=== PATIENT | female | born 1975 | race Caucasian/White ===

== ENCOUNTER 2016-12-22 18:39 | Emergency (ER) | payer BC, MEDICAID ==
[~2016-12-22] VITALS: Ht 170.2 cm; Wt 109.0 kg
[2016-12-22 19:09] VITALS: Ht 170.2 cm; Wt 109.0 kg
[2016-12-22] MEDS ORDERED: IBUPROFEN 800 MG TAB PO ONE (20:30)
[2016-12-22] MEDS ORDERED: HYDR25SU23 PR (20:37)
[2016-12-22] MEDS ORDERED: DOCU-144 PO (20:37)
[2016-12-22] MEDS ORDERED: POLY17PO6 PO (20:37)
[2016-12-22] MEDS ORDERED: IBUP-1542 PO (20:37)
[2016-12-22] MEDS ORDERED: HYDR-906 PO (20:37)
--- NOTE | 2016-12-22 20:43 | ERD ---
ER Documentation Chief Complaint Date/Time DATE: 12/22/16 TIME: 20:40 Chief Complaint RECTAL BLEEDING X 3 DAYS WITH RECTAL PAIN/SWELLING, NO ABD PAIN HPI This a 41-year-old female who presents the emergency department today complaining of rectal pain and some bleeding for the past 3 days. Patient denies any constipation. States that she has unsure if she has had hemorrhoids in the past may have had when she was with her child. Denies that there is any gross blood in the toilet and states that she just notices a blood when she wipes. States she is taking Tylenol for pain. Denies any fevers or chills. Denies any abdominal pain. ROS All systems reviewed and are negative except as per history of present illness. Medications Home Meds Active Scripts Ibuprofen* (Motrin*) 600 Mg Tab, 600 MG PO Q6, #30 TAB Prov:EUNICE WORTHY-C 12/22/16 Docusate Sodium* (Colace*) 100 Mg Capsule, 100 MG PO TID, #30 CAP Prov:EUNICE WORTHY PA-C 12/22/16 Polyethylene Glycol* (Miralax*) 17 Gm Powd.pack, 17 GM PO DAILY, #14 Prov:EUNICE WORTHY-C 12/22/16 Hydrocodone/Acetaminophen (Rosser 5-325 Tablet) 1 Each Tablet, 1 TAB PO Q6H Y for PAIN, #12 TAB Prov:EUNICE WORTHYC 12/22/16 Hydrocortisone Acetate (Anusol-Hc) 25 Mg Supp.rect, 1 SUPP FL BID Y for HEMORROID PAIN/ITCHING, #15 SUPP.RECT Prov:EUNICE WORTHY-C 12/22/16 Allergies Allergies: Coded Allergies: No Known Allergy (Unverified , 07/26/14) PMhx/Soc Medical and Surgical Hx: pt denies Medical Hx, pt denies Surgical Hx Hx Alcohol Use: Yes Hx Substance Use: No Hx Tobacco Use: No Smoking Status: Never smoker Physical Exam Vitals Vital Signs Date Time Temp Pulse Resp B/P Pulse Ox O2 Delivery O2 Flow Rate FiO2 12/22/16 19:09 99.0 83 18 127/77 98 Physical Exam Const: Obese, no acute distress Head: Atraumatic Eyes: Normal Conjunctiva ENT: Normal External Ears, Nose and Mouth. Neck: Full range of motion..~ No meningismus. Resp: Clear to auscultation bilaterally Cardio: Regular rate and rhythm, no murmurs Abd: Soft, non tender, non distended. Normal bowel sounds : Rectal exam shows evidence of external hemorrhoids with mild bleeding. No evidence of thrombosed hemorrhoids. Skin: No petechiae or rashes Back: No midline or flank tenderness Ext: No cyanosis, or edema Neur: Awake and alert Psych: Normal Mood and Affect Results 24 hrs Current Medications Medications (Trade) Dose Ordered Sig/Duglas Route PRN Reason Start Time Stop Time Status Last Admin Dose Admin Ibuprofen (Motrin) 800 mg ONCE ONCE PO 12/22/16 20:30 12/22/16 20:31 DC 12/22/16 20:22 Procedures/MDM This 41-year-old female presents to the emergency department today with complaints of rectal pain and some bleeding for the past 3 days. Patient is afebrile and otherwise well-appearing. She is in no acute distress. Patient denied any gross melena or hematochezia. Patient indicated there was blood when she wipes. On physical exam patient has evidence of external hemorrhoids. I do not see evidence of thrombosed hemorrhoid at this time. I do not feel the patient requires incision and drainage. I have explained this to the patient. I do not feel the patient requires laboratory workup or imaging at this time. Patient appears hemodynamically stable and her vital signs are stable. Patient denies any constipation stating that she drink coffee every day and she had a bowel movement daily. Patient symptoms at this time is consistent with external hemorrhoids. Patient was given Motrin here in the emergency department as she was driving. Patient was given a prescription for Anusol, Colace, MiraLAX, Rosser for pain as well as Motrin. At this time the patient is stable for discharge and outpatient management. Patient should follow up with their PCP in the next 1-2 days. They may return to the emergency department sooner for any persistent or worsening of symptoms. Patient understood and agreed with the plan. Departure Diagnosis: Primary Impression: Hemorrhoids Hemorrhoid type: unspecified Qualified Code: K64.9 - Hemorrhoids, unspecified hemorrhoid type Condition: Fair Patient Instructions: Treating Hemorrhoids: Self-Care Referrals: COMMUNITY CLINICS YOU HAVE RECEIVED A MEDICAL SCREENING EXAM AND THE RESULTS INDICATE THAT YOU DO NOT HAVE A CONDITION THAT REQUIRES URGENT TREATMENT IN THE EMERGENCY DEPARTMENT. FURTHER EVALUATION AND TREATMENT OF YOUR CONDITION CAN WAIT UNTIL YOU ARE SEEN IN YOUR DOCTORS OFFICE WITHIN THE NEXT 1-2 DAYS. IT IS YOUR RESPONSIBILITY TO MAKE AN APPOINTMENT FOR FOLOW-UP CARE. IF YOU HAVE A PRIMARY DOCTOR --you should call your primary doctor and schedule an appointment IF YOU DO NOT HAVE A PRIMARY DOCTOR YOU CAN CALL OUR PHYSICIAN REFERRAL HOTLINE AT IF YOU CAN NOT AFFORD TO SEE A PHYSICIAN YOU CAN CHOSE FROM THE FOLLOWING [facility] [address] [facility] [facility] [address] [facility] [facility] [address] [facility] [facility] [address] [facility]. [facility] [address] [facility]. [facility] [address] Additional Instructions: Call your primary care doctor TOMORROW for an appointment during the next 1-2 days.See the doctor sooner or return here if your condition worsens before your appointment time. Take Rosser for severe pain otherwise take Naprosyn or Tylenol or Motrin Take MiraLAX and Colace to help avoid constipation Use Anusol as prescribed EUNICE WORTHY PA-C December 22, 2016 20:43
[2016-12-22 21:00] VITALS: BP 125/79; PULSE 70; RESP 18; TEMP 99
== END 2016-12-22 21:00 | disposition home or self-care (01) ==
LOC: FTE 18:39
DX: K64.4 Residual hemorrhoidal skin tags (principal)
CPT/HCPCS: Z7502; Z7610; 99283

== ENCOUNTER 2017-06-18 08:21 | Emergency (ER) | payer BC, MEDICAID ==
[~2017-06-18] VITALS: Ht 167.6 cm; Wt 101.5 kg
[~2017-06-18 08:21] MED LIST: DOCU-144 PO; HYDR-906 PO; HYDR25SU23 PR; IBUP-1542 PO; POLY17PO6 PO
[2017-06-18 08:25] VITALS: Ht 167.6 cm; Wt 101.5 kg
--- NOTE | 2017-06-18 09:20 | ERD ---
ER Documentation Chief Complaint Chief Complaint left hand pain & swelling x2 day HPI 42y/o female patient with no significant medical history,presents to the emergency department c/o left thumb pain located tender area, that started 4 ago after lifting her son. pain is dull, rated 8/10, radiated to left wrist. The symptoms are associated with decreased range of motion and mild local edema. Denies fever, chills, N/V/D. No history of previous episodes. Treatment attempted: Local ice ROS SYSTEMIC symptoms: no fever, chills, no night sweats, no weight loss EYE symptoms: No blurred vision, no eye discharge OTOLARYNGEAL symptoms: No hearing loss. No ear pain, no sore throat CARDIOVASCULAR symptoms: No chest pain or discomfort, no palpitations. PULMONARY symptoms: No dyspnea, no cough, no wheezing. GASTROINTESTINAL symptoms: No abdominal pain, no nausea, no vomiting, no diarrhea NEUROLOGY symptoms: No confusion, no syncope, no numbness or tingling. SKIN no rashes All systems reviewed and are negative except as per history of present illness. Medications Home Meds Active Scripts Hydrocodone/Acetaminophen ([place] 5-325 Tablet) 1 Each Tablet, 1 TAB PO Q6H Y for PAIN, #7 TAB Prov:SYD OSORIO MD 06/18/17 Ibuprofen* (Motrin*) 600 Mg Tab, 600 MG PO Q8, #30 TAB Prov:SYD OSORIO MD 06/18/17 Ibuprofen* (Motrin*) 600 Mg Tab, 600 MG PO Q6, #30 TAB Prov:EUNICE WORTHY PA-C 12/22/16 Docusate Sodium* (Colace*) 100 Mg Capsule, 100 MG PO TID, #30 CAP Prov:EUNICE WORTHY PA-C 12/22/16 Polyethylene Glycol* (Miralax*) 17 Gm Powd.pack, 17 GM PO DAILY, #14 Prov:EUNICE WORTHY PA-C 12/22/16 Hydrocodone/Acetaminophen ([place] 5-325 Tablet) 1 Each Tablet, 1 TAB PO Q6H Y for PAIN, #12 TAB Prov:EUNICE WORTHY PA-C 12/22/16 Hydrocortisone Acetate (Anusol-Hc) 25 Mg Supp.rect, 1 SUPP ME BID Y for HEMORROID PAIN/ITCHING, #15 SUPP.RECT Prov:ZAYNABEUNICE Solitario PA-C 12/22/16 Allergies Allergies: Coded Allergies: No Known Allergy (Unverified , 07/26/14) PMhx/Soc Medical and Surgical Hx: pt denies Medical Hx, pt denies Surgical Hx Hx Alcohol Use: Yes Hx Substance Use: No Hx Tobacco Use: No Physical Exam Vitals Vital Signs Date Time Temp Pulse Resp B/P Pulse Ox O2 Delivery O2 Flow Rate FiO2 06/18/17 08:25 98.1 88 20 163/72 99 Physical Exam Patient is in no acute distress, vital signs stable. Alert and fully oriented. EYES: PERRLA, EOMI, Sclera and conjunctiva appear normal. EARS: Canals clear, tympanic membranes WNL THROAT: Normal oropharynx. NECK: Supple, No lymphadenopathy. Full ROM without pain or tenderness. HEART: RRR, no rubs, murmurs, clicks or gallops. LUNGS: Clear to auscultation. EXTREMITIES: No edema bilaterally. MUSC: left hand: mild edema of 1st digit, tenderness on PIP. No ecchymosis, neurovascular exam intact. Mild decreased ROM of left thumb Results 24 hrs DIAGNOSTIC IMAGING REPORT Patient: CHEYANNE ADAMES : 1975 Age: 42 Sex: F MR #: [id number] DOS: 06/18/17 0913 Ordering MD: SYD OSORIO MD Location: [facility]TE Room/Bed: PROCEDURE: XR Left Hand. CLINICAL INDICATION: Left hand pain, trauma TECHNIQUE: Three views of the left hand were obtained. COMPARISON: No prior studies are available for comparison. FINDINGS: There is a small age indeterminate avulsion fracture along the radial margin of the first metacarpal phalangeal joint measuring 3 x 1 mm in size. There is mild adjacent soft tissue swelling. Alignment is normal. Joint spaces are preserved. Soft tissues are otherwise unremarkable. IMPRESSION: 1. Small age indeterminate avulsion fracture fragment along the radial first metacarpophalangeal joint capsule. RPTAT: UU .Jerry Zavala MD, MD Date Time Electronically viewed and signed by .Jerry Zavala MD, MD on 06/18/2017 09:53 Procedures/MDM 42y/o female patient, presents to the ED c/o left thumb pain for 4 days. Vital signs stable, Physical exam left first MCP area with tenderness to palpation and mild decreased range of motion. Differential diagnosis include but not limited to: Fracture, ligament injury, bursitis, tendinitis. Pertinent Data: X- Rays: left hand: 1. Small age indeterminate avulsion fracture fragment along the radial first metacarpophalangeal joint capsule. Physical examination and clinical presentation consistent most likely with left 1st MCP Fx. During the ED course the patient was stable left thumb spica was placed. Splint evaluation: Type: Thumb spica Location: Left upper extremity Position: good alignment in anatomical position Neurovascular intact Results and medical impression discussed with patient who agrees with management. The patient will be discharged home with a Rx for ibuprofen for [place] prn severe pain. Side effects of prescribed narcotic medications (drowsiness, constipation, habituation) were reviewed. Side effects of prescribed NSAID medication (GI distress, edema, bleeding, HTN) were reviewed. If symptoms persist, worsen or new symptoms develop, then patient is instructed to follow-up with the primary care provider. If the patient is unable to see the primary care provider, then return to the ED immediately. Departure Condition: Stable Additional Instructions: Elevating the injured part will help reduce pain and swelling. Ice packs can decrease pain and promote healing when applied in the first two days after an injury. The pack should be dry on the outside. Apply it for half an hour three to four times a day. If you have an elastic bandage or sling, remove it for bathing, sleep and when the injury is significantly improved. Rewrap the bandage if it feels too loose or too tight. Thank you very much for allowing us to participate in your care. Your health and safety is our top priority at [facility]. Have prescriptions filled and follow precisely the directions on the label. Follow-up with primary care provider during the next 4 days and bring all the information and medications prescribed. If illness has not improved in 2 days, then make an appointment with primary care provider. If the provider is unavailable, return to the Emergency Department immediately. SYD OSORIO MD Jun 18, 2017 09:20
--- NOTE | 2017-06-18 09:53 | RADRPT ---
PROCEDURE: XR Left Hand. CLINICAL INDICATION: Left hand pain, trauma TECHNIQUE: Three views of the left hand were obtained. COMPARISON: No prior studies are available for comparison. FINDINGS: There is a small age indeterminate avulsion fracture along the radial margin of the first metacarpal phalangeal joint measuring 3 x 1 mm in size. There is mild adjacent soft tissue swelling. Alignment is normal. Joint spaces are preserved. Soft tissues are otherwise unremarkable. IMPRESSION: 1. Small age indeterminate avulsion fracture fragment along the radial first metacarpophalangeal christopher nt capsule. RPTAT: UU .Jerry Zavala MD, Date Time Electronically viewed and signed by .Jerry Zavala MD, on 06/18/2017 09:53 .K/
[2017-06-18] MEDS ORDERED: IBUP-1542 PO (10:51)
[2017-06-18] MEDS ORDERED: HYDR-906 PO (10:51)
[2017-06-18 11:12] VITALS: BP 155/72; PULSE 77; RESP 16; TEMP 98.1
== END 2017-06-18 11:14 | disposition home or self-care (01) ==
LOC: FTE 08:21
DX: M79.645 Pain in left finger(s) (principal)